=== PATIENT | male | born 1970 | race Caucasian/White ===

== ENCOUNTER 2021-04-03 23:13 | Emergency (ER) | payer BC ==
[2021-04-03] MEDS ORDERED: Ketorolac 30 MG/ML SDV IM ONE (23:51)
--- NOTE | 2021-04-04 00:51 | CRLCT ---
For Patients: As a result of the Century Cures Act, medical imaging exams and procedure reports are released immediately into your electronic medical record. You may view this report before your referring provider. If you have questions, please contact your health care provider. INDICATION: Left groin Pain TECHNIQUE: CT Abdomen and pelvis without i.v. contrast. Coronal and sagittal reformats were obtained. COMPARISON: None FINDINGS: Lower chest: Unremarkable. Liver: Unremarkable. Spleen: Unremarkable. Pancreas: Unremarkable. Gallbladder: Faint layering densities are present within the gallbladder which may be due to sludge or noncalcified gallstones. Kidney: there is a 1.3 cm hyperdense lesion present in the lower pole of the right kidney present and incompletely assessed without intravenous contrast. No kidney or ureteral stones or obstruction seen. Adrenal: Unremarkable. Bowel: Unremarkable. The appendix is normal in appearance and size. Vascular: Unremarkable. Lymph: Unremarkable. Peritoneum: Unremarkable. No pneumoperitoneum is seen. No significant ascites is noted. Pelvis: Unremarkable. Soft tissue: Unremarkable. Bone: Unremarkable for age. IMPRESSION: 1. Unremarkable with no CT correlate for the patient`s symptoms seen. Dictated by Wily Castro MD @ 04/04/2021 12:48:50 AM Please note that all CT scans at this facility use dose modulation, iterative reconstruction, and/or weight-based dosing when appropriate to reduce radiation dose to as low as reasonably achievable. Dictated by: Wily Castro MD @ 04/04/2021 00:49:11 (Electronically Signed)
[2021-04-04] MEDS ORDERED: HYDROmorphone 1 MG/ML Syringe IM ONE (00:57)
--- NOTE | 2021-04-04 01:04 | EDM.PDOC ---
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 He felt a pulling sensation in his left groin, a few minutes later it became more intense and he had 1 emesis. He has a history of hernias in his lower abdomen and because the pain is so persistent all day he wanted to be checked for hernia. The pain is in the left lower abdomen radiating into the left testicle, but mostly in the groin. He can walk but it is painful. No fevers or chills, no dysuria. Onset: Sudden Duration: Hour(s): (Incident occurred about 10 hours ago) Location: Reports: Abdomen (Left lower abdomen and groin) Quality: Reports: Sharp, Stabbing Improves with: Reports: None Worsens with: Reports: Movement Associated Symptoms: Reports: Nausea/Vomiting Left Groin Pain Score (Numeric/FACES): 10 - Related Data Allergies Allergy/AdvReac Type Severity Reaction Status Date / Time No Known Allergies Allergy Verified 04/03/21 23:36 Home Meds: Home Meds Aspirin 325 mg PO DAILY 04/03/21 [History] Clopidogrel [Plavix] 75 mg PO DAILY 04/03/21 [History] Metoprolol Succinate [Toprol XL] 25 mg PO DAILY 04/03/21 [History] Rosuvastatin [Crestor] 20 mg PO DAILY 04/03/21 [History] lisinopriL [Lisinopril] 20 mg PO DAILY 04/03/21 [History] Social & Family History - Tobacco Use Tobacco Use Status *Q: Current Every Day Tobacco User Years of Tobacco use: 30 Packs/Tins Daily: 1 - Recreational Drug Use Recreational Drug Use: No ED ROS GENERAL - Review of Systems Review Of Systems: See Below Constitutional: Reports: Malaise. Denies: Fever, Chills HEENT: Reports: No Symptoms Respiratory: Reports: No Symptoms Cardiovascular: Reports: No Symptoms GI/Abdominal: Reports: Abdominal Pain (Extreme left lower abdominal pain and suprapubic pain) : Reports: Other (Left testicular pain) Skin: Reports: No Symptoms Neurological: Reports: No Symptoms ED EXAM, GENERAL - Physical Exam Exam: See Below Exam Limited By: No Limitations General Appearance: Alert, Anxious, Mild Distress (Looks very uncomfortable) Eye Exam: Bilateral Eye: Normal Inspection (No jaundice) Head: Atraumatic Neck: Supple, Non-Tender Respiratory/Chest: No Respiratory Distress, Lungs Clear Cardiovascular: Regular Rate, Rhythm GI/Abdominal: Other (Abdomen is morbidly obese, on palpation he is tender to palpation in the extreme left lower quadrant, suprapubic area and left groin. Also tender around the left testicle) (Male) Exam: Other (Tender around the left testicle and left groin but no hernias palpable) Neurological: Alert, Oriented Psychiatric: Anxious Skin Exam: Warm, Dry Course - Vital Signs Last Recorded V/S: Last Vital Signs Temp 98.1 F 04/03/21 23:34 Pulse 71 04/03/21 23:34 Resp 18 04/03/21 23:34 BP 147/86 H 04/03/21 23:34 Pulse Ox 95 04/03/21 23:34 - Orders/Labs/Meds Labs: Laboratory Tests 04/03/21 Range/Units 23:57 Urine Color Yellow (YELLOW) Urine Appearance Clear (CLEAR) Urine pH 5.5 (5.0-8.0) Ur Specific [place] >= 1.030 (1.008-1.030) Urine Protein 30 H (NEGATIVE) mg/dL Urine Glucose (UA) Negative (NEGATIVE) mg/dL Urine Ketones Negative (NEGATIVE) mg/dL Urine Occult Blood Negative (NEGATIVE) Urine Nitrite Negative (NEGATIVE) Urine Bilirubin Negative (NEGATIVE) Urine Urobilinogen 0.2 (0.2-1.0) EU/dL Ur Leukocyte Esterase Negative (NEGATIVE) Urine RBC 0-5 (0-5) Urine WBC 0-5 (0-5) Ur Epithelial Cells Rare Amorphous Sediment Few Urine Bacteria Few Urine Mucus Moderate Urine Other See note Meds: Medications Discontinued Medications Generic Name Dose Route Start Last Admin Trade Name Freq PRN Reason Stop Dose Admin Hydromorphone HCl 2 mg 04/04/21 00:57 04/04/21 01:06 Hydromorphone 1 Mg/Ml Syringe IM 04/04/21 00:58 2 mg ONETIME ONE Administration Ketorolac Tromethamine 30 mg 04/03/21 23:51 04/03/21 23:59 Ketorolac 30 Mg/Ml Sdv IM 04/03/21 23:52 30 mg ONETIME ONE Administration - Re-Assessments/Exams Free Text/Narrative Re-Assessment/Exam: 04/04/21 01:00 Patient was given 30 mg of IM Toradol that gave him just slight relief. A CT of the abdomen and pelvis to look for muscle hematomas, hernias, kidney stone or other source of pain was done, it was normal. He was then given 2 mg of IM Dilaudid, and discharged with 3 days supply of p.o. ketorolac and 10 hydrocodone to take for extra breakthrough pain. Recheck at the clinic next week for a physical therapy consultation if not improving. Departure - Departure Time of Disposition: 01:10 Disposition: Home, Self-Care 01 Clinical Impression: Strain of left groin - Discharge Information Instructions: Muscle Strain, [id number] Referrals: Chente Severino NP [Primary Care Provider] - Forms: ED Department Discharge Care Plan Goals: Take 1 dose of Toradol every 6 hours until gone, add 1-2 hydrocodone every 4-6 hours if needed for extra pain control. Increase activity as tolerated, and consider rechecking at the clinic next week if not improving satisfactorily as you may need further evaluation such as MRI or physical therapy consultation. Sepsis Event Note (ED) - Evaluation Sepsis Screening Result: No Definite Risk - Focused Exam Vital Signs: Vital Signs Temp Pulse Resp BP Pulse Ox 04/03/21 23:34 98.1 F 71 18 147/86 H 95 04/03/21 23:30 98.1 F 71 18 147/86 H 95
== END 2021-04-04 01:19 | disposition home or self-care (01) ==
LOC: JP.ED 23:13
DX: S39.011A Strain of muscle, fascia and tendon of abdomen, initial encounter (principal); N50.812 Left testicular pain; Z79.82 Long term (current) use of aspirin; Z79.02 Long term (current) use of antithrombotics/antiplatelets; Z79.899 Other long term (current) drug therapy; Z72.0 Tobacco use; X50.1XXA Overexertion from prolonged static or awkward postures, initial encounter
CPT/HCPCS: 74176; 81001; 96372; 99284; J1170; J1885